=== PATIENT | female | born 1965 | race Caucasian/White ===

== ENCOUNTER 2024-08-09 08:40 | Outpatient (CLI) | payer OTHER | END 2024-08-09 08:57 | disposition home or self-care (01) | LOC: TOM 08:40 | DX: R19.4 Change in bowel habit (principal); R10.30 Lower abdominal pain, unspecified; K56.600 Partial intestinal obstruction, unspecified as to cause ==

== ENCOUNTER 2024-11-03 09:23 | Outpatient (CLI) | payer OTHER | END 2024-11-03 09:29 | disposition home or self-care (01) | LOC: TOM 09:23 | DX: M25.50 Pain in unspecified joint (principal); R10.84 Generalized abdominal pain ==